=== PATIENT | male | born 1950 | race Caucasian/White ===

== ENCOUNTER 2021-05-11 08:57 | Emergency (ER) | payer MEDICARE ==
[~2021-05-11] VITALS: Ht 180.3 cm; Wt 75.5 kg
[2021-05-11 09:06] VITALS: BP 141/81; TEMP 97.6
[2021-05-11] MEDS ORDERED: COZAAR 50MG50 MG/TAB PO (09:09)
[2021-05-11] MEDS ORDERED: PROSCAR 5MG5 MG (09:10)
[2021-05-11] MEDS ORDERED: CELEBREX50 MG (09:10)
[2021-05-11] MEDS ORDERED: VITAMIN D31000 I1 PO (09:10)
[2021-05-11 10:46] VITALS: PULSE 63
== END 2021-05-11 10:46 | disposition home or self-care (01) ==
LOC: COL.ER 08:57
DX: S00.83XA Contusion of other part of head, initial encounter (principal); W00.0XXA Fall on same level due to ice and snow, initial encounter; Y93.K1 Activity, walking an animal